=== PATIENT | male | born 1970 | race African-American/Black ===

== ENCOUNTER 2022-12-30 11:58 | Inpatient (IN) | payer BC, SELFPAY ==
[~2022-12-30 11:58] MED LIST: Iopamidol-370 76% 500 ML MDV (1 ML CHARGE) ONE
[2022-12-30 12:40] LABS: #Monocytes 1.5 thou/uL (0.11-0.59); #Neutrophils 8.5 thou/uL (1.40-6.50); %Basophils 0.3 % (0.0-1.0); %Lymphocytes 12.9 % (21.0-51.0); %Monocytes 13.1 % (0.0-10.0); %Neutrophils 73.2 % (42.0-75.0); Hematocrit 44.3 % (42.0-52.0); Hemoglobin 14.9 g/dL (14.0-18.0); Mean Corpuscular HGB CONC 33.6 g/dL (32.0-36.0); Mean Corpuscular Hemoglobin 31.5 pg (27.0-31.0); Mean Corpuscular Volume 93.7 fl (78.0-98.0); Platelet Count 313 10x3/uL (130-400); RBC Distribution Width 12.2 % (11.5-14.5); Red Blood Cell (RBC) Count 4.73 mill/uL (4.70-6.10); White Blood Cell (WBC) Count 11.6 10x3/uL (4.8-10.8)
[2022-12-30 13:13] LABS: ALT (SGPT) 21 U/L (8-55); AST (SGOT) 14 U/L (5-34); Albumin 3.7 g/dL (3.5-5.0); Alkaline Phosphatase 72 U/L (40-110); Anion Gap 17 mmol/L (10-20); BUN (Urea Nitrogen) 13 mg/dL (8.4-25.7); Bilirubin, Total 0.9 mg/dL (0.2-1.2); Calc. Creatinine Clearance 0 mL/min (70-130); Calcium 9.4 mg/dL (7.8-10.44); Carbon Dioxide 23 mmol/L (22-29); Chloride 95 mmol/L (98-107); Estimated GFR 94; Globulin 4.8 g/dL (2.4-3.5); Glucose 104 mg/dL (70-105); Protein, Total 8.5 g/dL (6.0-8.3); Sodium 131 mmol/L (136-145)
[2022-12-30] MEDS ORDERED: Ketorolac Tromethamine 30 MG/ML VIAL ONE (15:23)
[2022-12-30] MEDS ORDERED: Cefepime 2 GM VIAL ONE (15:23)
[2022-12-30] MEDS ORDERED: Ondansetron PF 4 MG/2 ML Vial ONE (15:23)
[2022-12-30] MEDS ORDERED: Morphine 4 MG/ML VIAL ONE (15:23)
[2022-12-30] MEDS ORDERED: Vancomycin 1 GM/200 ML (FROZEN) BAG ONE (16:43)
[2022-12-30 16:59] LABS: Bacteria/HPF None Seen HPF (None Seen); Bilirubin Negative (Negative); Blood, Urine Trace (Negative); CAUTI Indications for Culture Dysuria,urgency,freq; Clarity Clear (Clear); Glucose, Urine (Dipstick) Normal (Negative); Ketone, Urine 80 mg/dL (Negative); Leukocyte Negative Leu/uL (Negative); Nitrite Negative (Negative); Protein, Urine (Dipstick) 30 mg/dL (Neg-Trace); RBC/HPF 0-3 HPF (0-3); Specific Gravity, Urine Greater than 1.060 (1.002-1.036); Squamous Epithelial None Seen HPF (0-3); WBC/HPF 0-3 HPF (0-3); pH, Urine 5.5 (5.0-9.0)
[2022-12-30 17:00] LABS: Urine Culture Reflex No No
[2022-12-30] MEDS ORDERED: Acetaminophen 325 MG TAB PO PRN (18:57)
[2022-12-30] MEDS ORDERED: cefTRIAXone\\ROCEPHIN 2 GM in Sodium Chloride 0.9% 100 ML IVPB SCH (19:00)
[2022-12-30] MEDS: Morphine 2 MG/ML VIAL SLOW IVP PRN ×2 (20:49→22:44)
[2022-12-30] MEDS: Sodium Chloride 0.9% 1,000 ML IV SCH (20:51)
[2022-12-30 21:09] VITALS: BMI 23.7
[2022-12-30] MEDS ORDERED: Clindamycin/D5W 600 MG in Premix Bag 1 BAG IVPB SCH (22:00)
[2022-12-30] MEDS: Ketorolac Tromethamine 30 MG/ML VIAL IVP SCH (22:45)
[2022-12-30] MEDS: metroNIDAZOLE 500 MG in Premix Bag 1 BAG IVPB SCH (22:52)
[2022-12-31] MEDS: Vancomycin 1.5 GRAM/300 ML BAG 1.5 GM in Premix Bag 1 BAG IVPB SCH ×2 (01:53→13:07)
[2022-12-31] MEDS: Cefepime 2 GM in Sodium Chloride 0.9% 100 ML IVPB SCH ×2 (03:58→14:57)
[2022-12-31] MEDS: Sodium Chloride 0.9% 1,000 ML IV SCH ×2 (04:01→15:05)
[2022-12-31] MEDS: Ketorolac Tromethamine 30 MG/ML VIAL IVP SCH ×2 (05:19→14:04)
[2022-12-31] MEDS: metroNIDAZOLE 500 MG in Premix Bag 1 BAG IVPB SCH ×3 (05:19→21:40)
[2022-12-31 06:15] LABS: ALT (SGPT) 16 U/L (8-55); AST (SGOT) 19 U/L (5-34); Albumin 2.9 g/dL (3.5-5.0); Alkaline Phosphatase 61 U/L (40-110); Anion Gap 12 mmol/L (10-20); BUN (Urea Nitrogen) 11 mg/dL (8.4-25.7); Bilirubin, Total 0.8 mg/dL (0.2-1.2); Calc. Creatinine Clearance 122 mL/min (70-130); Calcium 8.4 mg/dL (7.8-10.44); Carbon Dioxide 23 mmol/L (22-29); Chloride 101 mmol/L (98-107); Estimated GFR 106; Globulin 4.3 g/dL (2.4-3.5); Glucose 112 mg/dL (70-105); Protein, Total 7.2 g/dL (6.0-8.3); Sodium 132 mmol/L (136-145)
[2022-12-31] MEDS ORDERED: Dexmedetomidine 200 MCG/2 ML VIAL ONE (10:29)
[2022-12-31] MEDS ORDERED: Fentanyl 250 MCG/5 ML VIAL ONE (10:29)
[2022-12-31] MEDS ORDERED: Chlorhexidine Gluconate 15 ML UDCUP SSP ONE (10:42)
[2022-12-31] MEDS ORDERED: EPINEPHrine 1 MG/ML AMP ONE (10:42)
[2022-12-31] MEDS ORDERED: Lidocaine 1% (PF) 30 ML VIAL ONE (10:42)
[2022-12-31] MEDS ORDERED: Rocuronium Bromide 10 MG/ML (10ML VIAL) ONE (11:13)
[2022-12-31] MEDS ORDERED: Ondansetron PF 4 MG/2 ML Vial ONE (11:13)
[2022-12-31] MEDS ORDERED: PROPOFOL 200 MG/20 ML VIAL ONE (11:13)
[2022-12-31] MEDS ORDERED: NEOSTIGMINE 3 MG/3 ML SYR 3 MG/3 ML SYRINGE ONE (11:13)
[2022-12-31] MEDS ORDERED: Dexamethasone 20 MG/5 ML VIAL ONE (11:13)
[2022-12-31] MEDS ORDERED: Glycopyrrolate 0.2 MG/ML 5 ML SYRINGE ONE (11:13)
[2022-12-31] MEDS ORDERED: Lorazepam 2 MG/ML VIAL IM PRN (11:50)
[2022-12-31] MEDS ORDERED: Lorazepam 1 MG TAB PO PRN (11:50)
[2022-12-31] MEDS ORDERED: Ondansetron ODT 4 MG TAB PO PRN (11:50)
[2022-12-31] MEDS ORDERED: Folic Acid 1 MG TAB PO SCH (12:00)
[2022-12-31] MEDS ORDERED: Electrolyte Replacement Protocol FS PRN (12:00)
[2022-12-31] MEDS ORDERED: Electrolyte Replacement Protocol 1 EACH FS SCH (12:00)
[2022-12-31] MEDS ORDERED: Multivit, Therapeutic 1 TAB PO SCH (12:00)
[2022-12-31] MEDS ORDERED: HYDROmorphone 2 MG/ML VIAL SLOW IVP PRN (12:26)
[2022-12-31] MEDS ORDERED: Ondansetron HCl/PF 4 MG/2 ML Vial IVP PRN (12:26)
[2022-12-31] MEDS ORDERED: Promethazine HCl 25 MG/ML VIAL IM PRN (12:26)
[2022-12-31] MEDS: Thiamine HCl 200 MG/2 ML VIAL SLOW IVP SCH (13:08)
[2022-12-31] MEDS: Morphine 2 MG/ML VIAL SLOW IVP PRN (21:40)
[2023-01-01] MEDS: Vancomycin 1.5 GRAM/300 ML BAG 1.5 GM in Premix Bag 1 BAG IVPB SCH ×2 (01:27→13:29)
[2023-01-01] MEDS: Sodium Chloride 0.9% 1,000 ML IV SCH ×3 (01:30→21:59)
[2023-01-01] MEDS: Cefepime 2 GM in Sodium Chloride 0.9% 100 ML IVPB SCH ×2 (04:16→16:04)
[2023-01-01] MEDS: metroNIDAZOLE 500 MG in Premix Bag 1 BAG IVPB SCH ×3 (05:25→21:59)
[2023-01-01] MEDS: Morphine 2 MG/ML VIAL SLOW IVP PRN ×3 (09:25→21:59)
[2023-01-01] MEDS: Folic Acid 1 MG TAB PO SCH (09:26)
[2023-01-01] MEDS: Multivit, Therapeutic 1 TAB PO SCH (09:26)
[2023-01-01] MEDS ORDERED: Lorazepam 1 MG TAB PO PRN (11:50)
[2023-01-01] MEDS: Thiamine HCl 200 MG/2 ML VIAL SLOW IVP SCH (13:29)
[2023-01-01] MEDS ORDERED: Acetaminophen 325 MG/10.15 ML UDCUP PO PRN (14:09)
[2023-01-01 14:26] LABS: #Monocytes 1.3 thou/uL (0.11-0.59); #Neutrophils 8.7 thou/uL (1.40-6.50); %Basophils 0.3 % (0.0-1.0); %Lymphocytes 10.6 % (21.0-51.0); %Monocytes 11.2 % (0.0-10.0); %Neutrophils 77.4 % (42.0-75.0); Hematocrit 35.9 % (42.0-52.0); Hemoglobin 12.1 g/dL (14.0-18.0); Mean Corpuscular HGB CONC 33.7 g/dL (32.0-36.0); Mean Corpuscular Hemoglobin 31.4 pg (27.0-31.0); Mean Corpuscular Volume 93.2 fl (78.0-98.0); Mean Platelet Volume 8.7 fL (7.4-10.4); Platelet Count 318 10x3/uL (130-400); Red Blood Cell (RBC) Count 3.85 mill/uL (4.70-6.10); White Blood Cell (WBC) Count 11.3 10x3/uL (4.8-10.8)
[2023-01-02] MEDS: Cefepime 2 GM in Sodium Chloride 0.9% 100 ML IVPB SCH ×2 (02:16→15:13)
[2023-01-02] MEDS: Morphine 2 MG/ML VIAL SLOW IVP PRN ×3 (02:16→17:14)
[2023-01-02] MEDS: metroNIDAZOLE 500 MG in Premix Bag 1 BAG IVPB SCH ×2 (04:55→15:13)
[2023-01-02 06:28] LABS: #Basophils 0.1 thou/uL (0.0-0.2); #Monocytes 0.9 thou/uL (0.11-0.59); #Neutrophils 6.4 thou/uL (1.40-6.50); %Basophils 0.6 % (0.0-1.0); %Eosinophils 0.1 % (0.0-10.0); %Monocytes 10.8 % (0.0-10.0); %Neutrophils 74.2 % (42.0-75.0); Hematocrit 35.4 % (42.0-52.0); Hemoglobin 11.8 g/dL (14.0-18.0); Mean Corpuscular HGB CONC 33.3 g/dL (32.0-36.0); Mean Corpuscular Hemoglobin 31.2 pg (27.0-31.0); Mean Corpuscular Volume 93.7 fl (78.0-98.0); Mean Platelet Volume 8.6 fL (7.4-10.4); Platelet Count 346 10x3/uL (130-400); Red Blood Cell (RBC) Count 3.78 mill/uL (4.70-6.10); White Blood Cell (WBC) Count 8.7 10x3/uL (4.8-10.8)
[2023-01-02 06:54] LABS: Anion Gap 11 mmol/L (10-20); BUN (Urea Nitrogen) 8 mg/dL (8.4-25.7); Calc. Creatinine Clearance 125 mL/min (70-130); Carbon Dioxide 23 mmol/L (22-29); Chloride 104 mmol/L (98-107); Estimated GFR 106; Glucose 91 mg/dL (70-105); Potassium 3.5 mmol/L (3.5-5.1); Sodium 134 mmol/L (136-145)
[2023-01-02] MEDS ORDERED: Potassium Chloride 20 MEQ TAB PO SCH (08:00)
[2023-01-02] MEDS: Folic Acid 1 MG TAB PO SCH (09:59)
[2023-01-02] MEDS: Multivit, Therapeutic 1 TAB PO SCH (09:59)
[2023-01-02] MEDS: Sodium Chloride 0.9% 1,000 ML IV SCH ×3 (10:00→20:55)
[2023-01-02] MEDS ORDERED: Lorazepam 1 MG TAB PO PRN (11:50)
[2023-01-02] MEDS: Thiamine HCl 200 MG/2 ML VIAL SLOW IVP SCH (12:11)
[2023-01-02] MEDS ORDERED: HYDROcodone/Acetaminophen 5/325 mg Tablet PO PRN (17:17)
[2023-01-02] MEDS ORDERED: HYDROcodone/Acetaminophen 10/325 mg Tablet PO PRN (17:17)
[2023-01-02] MEDS ORDERED: Clindamycin/D5W 300 MG/50 ML BAG IVPB SCH (18:00)
[2023-01-02] MEDS: Clindamycin 75 mg/5 ml Oral Suspension PO SCH (18:24)
[2023-01-02] MEDS: Acetaminophen 325 MG/10.15 ML UDCUP PO PRN (20:48)
[2023-01-03] MEDS: Clindamycin 75 mg/5 ml Oral Suspension PO SCH ×4 (00:46→21:05)
[2023-01-03] MEDS: Morphine 2 MG/ML VIAL SLOW IVP PRN ×3 (00:49→17:59)
[2023-01-03] MEDS: Cefepime 2 GM in Sodium Chloride 0.9% 100 ML IVPB SCH ×2 (02:40→14:20)
[2023-01-03] MEDS: Acetaminophen 325 MG/10.15 ML UDCUP PO PRN (02:41)
[2023-01-03 07:20] LABS: #Basophils 0.1 thou/uL (0.0-0.2); #Eosinphils 0.1 thou/uL (0.0-0.7); #Monocytes 0.8 thou/uL (0.11-0.59); #Neutrophils 5.2 thou/uL (1.40-6.50); %Basophils 0.7 % (0.0-1.0); %Eosinophils 1.4 % (0.0-10.0); %Lymphocytes 17.1 % (21.0-51.0); %Monocytes 10.3 % (0.0-10.0); %Neutrophils 70.1 % (42.0-75.0); Hematocrit 36.9 % (42.0-52.0); Hemoglobin 12.5 g/dL (14.0-18.0); Mean Corpuscular HGB CONC 33.9 g/dL (32.0-36.0); Mean Corpuscular Volume 91.6 fl (78.0-98.0); Mean Platelet Volume 8.5 fL (7.4-10.4); Platelet Count 410 10x3/uL (130-400); Red Blood Cell (RBC) Count 4.03 mill/uL (4.70-6.10); White Blood Cell (WBC) Count 7.4 10x3/uL (4.8-10.8)
[2023-01-03] MEDS: Floranex 1 GM Packet PO SCH (08:55)
[2023-01-03] MEDS: Multivit, Therapeutic 1 TAB PO SCH (08:55)
[2023-01-03] MEDS: Folic Acid 1 MG TAB PO SCH (08:55)
[2023-01-03] MEDS: Thiamine 100 MG TAB PO SCH (08:55)
[2023-01-03] MEDS: Sodium Chloride 0.9% 1,000 ML IV SCH (09:09)
[2023-01-03] MEDS ORDERED: Lorazepam 0.5 MG TAB PO PRN (11:50)
[2023-01-04] MEDS: Clindamycin 75 mg/5 ml Oral Suspension PO SCH ×3 (00:18→11:48)
[2023-01-04] MEDS: Sodium Chloride 0.9% 1,000 ML IV SCH ×2 (00:19→09:36)
[2023-01-04] MEDS: Cefepime 2 GM in Sodium Chloride 0.9% 100 ML IVPB SCH (02:28)
[2023-01-04] MEDS: Morphine 2 MG/ML VIAL SLOW IVP PRN ×2 (05:31→09:39)
[2023-01-04 08:39] VITALS: BP 133/78; TEMP 98.1
[2023-01-04] MEDS: Multivit, Therapeutic 1 TAB PO SCH (09:35)
[2023-01-04] MEDS: Folic Acid 1 MG TAB PO SCH (09:35)
[2023-01-04] MEDS: Thiamine 100 MG TAB PO SCH (09:36)
[2023-01-04] MEDS: Floranex 1 GM Packet PO SCH (09:39)
[2023-01-04 10:59] LABS: #Monocytes 0.8 thou/uL (0.11-0.59); #Neutrophils 5.2 thou/uL (1.40-6.50); %Basophils 0.4 % (0.0-1.0); %Eosinophils 0.1 % (0.0-10.0); %Lymphocytes 22.2 % (21.0-51.0); %Monocytes 10.6 % (0.0-10.0); %Neutrophils 66.3 % (42.0-75.0); Hematocrit 38.3 % (42.0-52.0); Mean Corpuscular HGB CONC 33.9 g/dL (32.0-36.0); Mean Corpuscular Hemoglobin 31.1 pg (27.0-31.0); Mean Corpuscular Volume 91.6 fl (78.0-98.0); Mean Platelet Volume 8.7 fL (7.4-10.4); Platelet Count 509 10x3/uL (130-400); RBC Distribution Width 11.9 % (11.5-14.5); Red Blood Cell (RBC) Count 4.18 mill/uL (4.70-6.10); White Blood Cell (WBC) Count 7.8 10x3/uL (4.8-10.8)
== END 2023-01-04 12:27 | disposition home or self-care (01) | DRG 580 ==
LOC: ERS 11:58 → T4-B 17:30
PROVIDERS: ADMIT Family Medicine; ATTEND Internal Medicine Critical Care Medicine
PROC: 0CDXXZ0 Extraction of Lower Tooth, Single, External Approach (ICD-10-PCS; principal; 2022-12-31)
PROC: 0C940ZZ Drainage of Buccal Mucosa, Open Approach (ICD-10-PCS; 2022-12-31)
PROC: 0CDWXZ0 Extraction of Upper Tooth, Single, External Approach (ICD-10-PCS; 2022-12-31)
PROC: 0J910ZZ Drainage of Face Subcutaneous Tissue and Fascia, Open Approach (ICD-10-PCS; 2022-12-31)
DX: L03.211 Cellulitis of face (principal); K12.2 Cellulitis and abscess of mouth; L02.11 Cutaneous abscess of neck; K02.9 Dental caries, unspecified; R00.0 Tachycardia, unspecified; K05.20 Aggressive periodontitis, unspecified; K05.6 Periodontal disease, unspecified
CPT/HCPCS: 36415; 36416; 70491; 71046; 80048; 80053; 80202; 81001; 83605; 85025; 87040; 87070; 87205; 93005; 96365; 96367; 96375; J0171; J0692; J1100; J1885; J2001; J2270; J2272; J2405; J2704; J3010; J3370; J3370-JW; J3411; J3490; J7050; Q9967